=== PATIENT | male | born 1960 | race Caucasian/White ===

== ENCOUNTER 2016-07-16 19:21 | Emergency (ER) | payer BC ==
--- NOTE | ~2016-07-16 | CR252 ---
[facility] A Service [facility] RADIOLOGY TEXT RESULTS PATIENT: ROLO FARR LOCATION: [facility] : 60 UNIT #: [id number] AGE: [address]: Raymond Troncoso MD SEX: M ORDER DR: [id number] [id number] [facility]. [place], [place] [address] [id number] E MR#: [id number] Acc #: [id number] NAME: ROLO FARR : 1960 SEX: M STUDY DATE/TIME: 07/16/2016 21:31 UNIT: [facility] ROOM: STUDY DESCRIPTION: CR Tibia and Fibula 2 Views Lt Attending Physician: Raymond Troncoso M.D. Ordering Physician: Raymond Troncoso M.D. Primary Care Physician: No Primary Care Physician MEDICAL IMAGING REPORT This report is preliminary unless electronic signature is present EXAM Left leg. DATE OF EXAM 07/16/2016 HISTORY 56-year-old male with left leg pain, status post laceration with chain saw today. COMPARISON None. FINDINGS 4 views of the left leg demonstrate medial soft tissue laceration along the [id number] aspect of the leg. No acute bony abnormality. No radiopaque foreign bodies. IMPRESSION Soft tissue laceration along the medial aspect of the mid left leg. No acute bony abnormality or radiopaque foreign body. Dictated by... Sridahr Howe M.D. THIS IS AN ELECTRONICALLY VERIFIED REPORT Sridhar Howe M.D. at 07/16/2016 10:56 PM EDWIN/roberth TD: 07/16/2016 22:44 JOB #: [id number] [facility] A Service [facility] RADIOLOGY TEXT RESULTS PATIENT: ROLO FARR LOCATION: [facility] : 60 UNIT #: [id number] AGE: [address]: Raymond Troncoso MD SEX: M ORDER DR: MEDICAL IMAGING REPORT Page 1 of 1 COPY
[~2016-07-16 19:21] MED LIST: NO MEDICATIONS
== END 2016-07-17 | disposition home or self-care (01) ==
LOC: CED 19:21
DX: S81.812A Laceration without foreign body, left lower leg, initial encounter (principal); Z23 Encounter for immunization; W29.3XXA Contact with powered garden and outdoor hand tools and machinery, initial encounter; Y92.009 Unspecified place in unspecified non-institutional (private) residence as the place of occurrence of the external cause
CPT/HCPCS: 12004; 73590; 90471; 90715; 99283